=== PATIENT | female | born 1980 | race Caucasian/White ===

== ENCOUNTER 2016-08-18 17:33 | Emergency (ER) | payer OTHER ==
[2016-08-18 17:39] VITALS: BP 113/69
--- NOTE | 2016-08-18 18:16 | UC ---
Throat Pain/Nasal Mikey HPI - HPI Summary HPI Summary: Woke up yesterday with head and chest congestion, ST, cough, lots of sinus pressure. - History of Current Complaint Chief Complaint: UCRespiratory Stated Complaint: CONGESTION,SINUS AND HEAD PAIN Time Seen by Provider: 08/18/16 17:49 Hx Obtained From: Patient Hx Last Menstrual Period: 08/17/16 ?: No Onset/Duration: Gradual Onset, Lasting Hours Severity: Moderate Cough: Nonproductive Associated Signs & Symptoms: Positive: Wheezing, Sinus Discomfort, Nasal Discharge - Allergies/Home Medications Allergies/Adverse Reactions: Allergies Allergy/AdvReac Type Severity Reaction Status Date / Time Hydrocodone [From Vicodin] AdvReac Nausea And Verified 08/18/16 17:39 Vomiting PMH/Surg Hx/FS Hx/Imm Hx Previously Healthy: Yes - Surgical History Surgical History: Yes Surgery Procedure, Year, and Place: 3 c-sections. tubal ligation - Family History Known Family History: Positive: Cardiac Disease - Social History Occupation: Employed Part-time - childcare Lives: With Family Alcohol Use: None Substance Use Type: None Smoking Status (MU): Current Every Day Smoker Type: Cigarettes Amount Used/How Often: 10-12 cig a day Length of Time of Smoking/Using Tobacco: 14 years Have You Smoked in the Last Year: Yes Household Exposure Type: Cigarettes Review of Systems Constitutional: Negative Skin: Negative Eyes: Negative ENT: Sore Throat, Nasal Discharge, Sinus Congestion, Sinus Pain/Tenderness Respiratory: Cough Cardiovascular: Negative Gastrointestinal: Negative Genitourinary: Negative Motor: Negative Neurovascular: Negative Musculoskeletal: Negative Neurological: Negative Psychological: Negative All Other Systems Reviewed And Are Negative: Yes Physical Exam Triage Information Reviewed: Yes Appearance: Well-Appearing, Obese Vital Signs: Initial Vital Signs Temp 98.6 F 08/18/16 17:37 Pulse 117 08/18/16 17:37 Resp 20 08/18/16 17:37 BP 113/69 08/18/16 17:37 Pulse Ox 97 08/18/16 17:37 Vital Signs Reviewed: Yes Eye Exam: Normal Eyes: Positive: Conjunctiva Clear ENT: Positive: Hearing grossly normal, Nasal congestion, Nasal drainage, TMs normal. Negative: Tonsillar swelling, Tonsillar exudate Dental Exam: Normal Neck exam: Normal Neck: Positive: Supple, Nontender, No Lymphadenopathy Respiratory Exam: Normal Respiratory: Positive: Chest non-tender, Lungs clear, Normal breath sounds, No respiratory distress, No accessory muscle use Cardiovascular: Positive: No Murmur, Tachycardia Musculoskeletal Exam: Normal Neurological Exam: Normal Neurological: Positive: Alert Psychological Exam: Normal Skin Exam: Normal Throat Pain/Nasal Course/Dx - Differential Dx/Diagnosis Provider Diagnoses: URI, likely viral Discharge - Discharge Plan Condition: Stable Disposition: HOME Prescriptions: Albuterol HFA INHALER* [Ventolin HFA Inhaler*] 1 - 2 puff INH Q4H PRN #1 mdi PRN Reason: wheeze, cough Guaifenesin-Codeine [Guaiatussin AC] 5 - 10 ml PO Q6H #240 ml MDD 40mL Pseudoephedrine-Guaifenesin [Mucinex D 60-600 mg] 1 tab PO BID #20 tab Patient Education Materials: Upper Respiratory Infection (ED), Wheezing (ED) Referrals: Marcin Kan [Primary Care Provider] - Additional Instructions: We used to think antibiotics were necessary to treat bronchitis, but studies have shown that respiratory viruses cause the disease in the vast majority of cases. Like head colds, most cases of bronchitis get better without antibiotics. We may prescribe antibiotics if we believe bacteria are damaging your airways, or if there's high risk the bronchitis will worsen into pneumonia (such as for individuals with emphysema or other lung disease). Increase your fluid intake. A cool mist humidifier may make your lungs more comfortable. An expectorant (cough medicine that loosens phlegm) can help. If you smoke, STOP!!! Recovery from bronchitis can be somewhat slow, but you should not have any significant worsening or new fevers. As long as you can breathe easily and you continue to have steady improvement, it is not important how many days it takes you to get better. Call or return if you develop increasing fever, shortness of breath, chest pain , bloody sputum, or otherwise worsen. If you have not improved at all after several days, contact your primary care physician or return here. INHALED BRONCHODILATORS: You have received a prescription for an inhaled bronchodilator -- a medication which stimulates the airways in the lung to dilate. This improves the flow of air in asthma, bronchitis, and emphysema. These medicines have some similarity to adrenaline, and can cause similar side effects: shakiness, racing heart, and a sense of nervousness. These side effects can be reduced with the use of a spacer and usually decrease with time. Use 1-2 puffs up to every 4 hours as needed for wheezing or tightness in your chest. It may be helpful to use preventatively, such as before bedtime or before going outside into cold air. IF YOU FIND THAT YOU ARE CONSISTENTLY NEEDING THE INHALER MORE THAN 6 TIMES PER DAY, PLEASE CALL OR RETURN FOR FURTHER EVALUATION.
== END 2016-08-18 18:29 | disposition home or self-care (01) ==
LOC: UCEAST 17:33
DX: J06.9 Acute upper respiratory infection, unspecified (principal); Z72.0 Tobacco use
CPT/HCPCS: 99212; G0463

== ENCOUNTER 2016-09-16 13:06 | Emergency (ER) | payer OTHER ==
[2016-09-16 13:23] VITALS: BP 128/77
--- NOTE | 2016-09-16 13:52 | UC ---
Dizzy HPI HPI Summary: 2 days of "dizziness" - History Of Current Complaint Hx Obtained From: Patient Hx Last Menstrual Period: now ?: No Onset/Duration: Sudden Onset, Lasting Days - 2, Still Present Timing: Constant - with head movements Severity Initially: Mild Severity Currently: Mild Character: Head Spinning Aggravating Factor(s): Change In Head Position Alleviating Factor(s): Nothing Associated Signs And Symptoms: Positive: Nausea - with vertigo <Ofelia Otto - Last Filed: 09/16/16 14:45> <Poornima Adames - Last Filed: 09/17/16 10:45> - History Of Current Complaint Chief Complaint: UCDizziness Stated Complaint: DIZZY AND LIGHTHEADED Time Seen by Provider: 09/16/16 13:49 - Allergies/Home Medications Allergies/Adverse Reactions: Allergies Allergy/AdvReac Type Severity Reaction Status Date / Time Hydrocodone [From Vicodin] AdvReac Nausea And Verified 09/16/16 13:23 Vomiting PMH/Surg Hx/FS Hx/Imm Hx Previously Healthy: Yes - Surgical History Surgical History: Yes Surgery Procedure, Year, and Place: 3 c-sections. tubal ligation - Family History Known Family History: Positive: Cardiac Disease - Social History Occupation: Employed Full-time Lives: With Family Alcohol Use: None Substance Use Type: None Smoking Status (MU): Current Every Day Smoker Type: Cigarettes Amount Used/How Often: 10-12 cig a day Length of Time of Smoking/Using Tobacco: 14 years Have You Smoked in the Last Year: Yes Household Exposure Type: Cigarettes <Ofelia Otto - Last Filed: 09/16/16 14:45> Review of Systems Constitutional: Negative Skin: Negative Eyes: Negative ENT: Ear Ache - Congestion Respiratory: Negative Cardiovascular: Negative Gastrointestinal: Negative Genitourinary: Negative Motor: Negative Neurovascular: Negative Musculoskeletal: Negative Neurological: Negative, Other - sensation of movement with head movement Psychological: Negative All Other Systems Reviewed And Are Negative: Yes <Ofelia Otto - Last Filed: 09/16/16 14:45> Physical Exam Triage Information Reviewed: Yes Appearance: Well-Appearing, No Pain Distress, Well-Nourished Vital Signs: Initial Vital Signs Temp 98.0 F 09/16/16 13:19 Pulse 93 09/16/16 13:19 Resp 18 09/16/16 13:19 BP 128/77 09/16/16 13:19 Pulse Ox 99 09/16/16 13:19 Vital Signs Reviewed: Yes Eye Exam: Normal Eyes: Positive: Conjunctiva Clear, Other: - perrla,eomi, fundascopic exam with in normal limits ENT Exam: Normal ENT: Positive: Normal ENT inspection, Hearing grossly normal, Pharynx normal, TMs normal. Negative: Nasal congestion, Nasal drainage, Tonsillar swelling, Tonsillar exudate, Trismus, Muffled/hoarse voice Dental Exam: Normal Neck exam: Normal Neck: Positive: Supple, Nontender, No Lymphadenopathy Respiratory Exam: Normal Respiratory: Positive: Chest non-tender, Lungs clear, Normal breath sounds, No respiratory distress, No accessory muscle use Cardiovascular Exam: Normal Cardiovascular: Positive: RRR, No Murmur, Pulses Normal, Brisk Capillary Refill Musculoskeletal Exam: Normal Musculoskeletal: Positive: Strength Intact, ROM Intact, No Edema Neurological Exam: Normal Neurological: Positive: Alert, Muscle Tone Normal Psychological Exam: Normal Skin Exam: Normal <Ofelia Otto - Last Filed: 09/16/16 14:45> Vital Signs: Initial Vital Signs Temp 98.0 F 09/16/16 13:19 Pulse 93 09/16/16 13:19 Resp 18 09/16/16 13:19 BP 128/77 09/16/16 13:19 Pulse Ox 99 09/16/16 13:19 <Poornima Adames - Last Filed: 09/17/16 10:45> Dizzy Course/Dx - Course Course Of Treatment: meclizine, flonase, follow with pcp prn - Differential Dx/Diagnosis Differential Diagnosis/HQI/PQRI: Anxiety, Benign Paroxysmal Positional Vertigo, Vasovagal Reaction Provider Diagnoses: BPPV <Ofelia Otto - Last Filed: 09/16/16 14:45> Discharge <Ofelia Otto - Last Filed: 09/16/16 14:45> <Poornima Adames - Last Filed: 09/17/16 10:45> - Discharge Plan Condition: Stable Disposition: HOME Prescriptions: Fluticasone NASAL SPRAY 50MCG* [Flonase NASAL SPRAY 50MCG*] 2 spray BOTH NARES DAILY #1 btl Meclizine HCl [Meclizine 25] 25 mg PO TID PRN #21 tab PRN Reason: Vertigo Patient Education Materials: Vertigo (ED), Benign Paroxysmal Positional Vertigo (ED), Serous Otitis Media (ED) Referrals: Althea MONTGOMERY,Marcin Noe [Primary Care Provider] - If Needed Attestation Statement User Type: Provider - I was available for consult. This patient was seen by the [facility]. The patient was not presented to, seen by, or examined by me. -Elmer <Poornima Adames - Last Filed: 09/17/16 10:45>
== END 2016-09-16 14:25 | disposition home or self-care (01) ==
LOC: UCEAST 13:06
DX: Z72.0 Tobacco use (principal); H81.10 Benign paroxysmal vertigo, unspecified ear
CPT/HCPCS: 81003; 84702; 99212; G0463

== ENCOUNTER 2018-12-24 15:13 | Emergency (ER) | payer OTHER ==
[2018-12-24 16:11] VITALS: BP 125/88
--- NOTE | 2018-12-24 16:33 | UC ---
Dental HPI - HPI Summary HPI Summary: 38 year old female with PMH + for poor dentation presents with toothache. Patient has ah problems with this tooth for several months, had cavity with filling, filling fell out, now with increased pain to area. Has dental appointment 01/07. however noted increased swelling, pain over past several days. no fever, chills. + pain with chewing. - History of Current Complaint Chief Complaint: UCDentalProblem Stated Complaint: TOOTH INFECTION Time Seen by Provider: 12/24/18 16:25 Hx Obtained From: Patient Hx Last Menstrual Period: now ?: No Onset/Duration: Sudden Onset, Lasting Days Severity: Mild Pain Intensity: 2 Pain Scale Used: 0-10 Numeric Aggravating Factor(s): Chewing - Allergies/Home Medications Allergies/Adverse Reactions: Allergies Allergy/AdvReac Type Severity Reaction Status Date / Time hydrocodone Allergy nausea and Verified 12/24/18 16:12 vomitting PMH/Surg Hx/FS Hx/Imm Hx Previously Healthy: Yes - Surgical History Surgical History: Yes Surgery Procedure, Year, and Place: 3 c-sections. tubal ligation - Family History Known Family History: Positive: Cardiac Disease - Social History Alcohol Use: Rare Substance Use Type: None Smoking Status (MU): Current Every Day Smoker Type: Cigarettes Amount Used/How Often: 10-12 cig a day Length of Time of Smoking/Using Tobacco: 14 years Have You Smoked in the Last Year: Yes Household Exposure Type: Cigarettes Review of Systems All Other Systems Reviewed And Are Negative: Yes Constitutional: Negative: Fever, Chills, Fatigue Skin: Negative: Rash ENT: Positive: Dental Pain, Other - swelling on left cheek Respiratory: Negative: Shortness Of Breath, Cough Neurological: Positive: Negative Psychological: Positive: Negative Is Patient Immunocompromised?: No Physical Exam Triage Information Reviewed: Yes Appearance: Well-Appearing, No Pain Distress, Well-Nourished Vital Signs: Initial Vital Signs Temp 97.8 F 12/24/18 16:08 Pulse 81 12/24/18 16:08 Resp 18 12/24/18 16:08 BP 125/88 12/24/18 16:08 Pulse Ox 97 12/24/18 16:08 Vital Signs Reviewed: Yes Eyes: Positive: Conjunctiva Clear ENT: Positive: Pharynx normal, Uvula midline. Negative: Tonsillar swelling, Tonsillar exudate Dental: Positive: Other: - multiple molars removed, left lower molar noted with filling, + ttp around gingiva with mild erytema noted, no fluctuance, no drainage seen. + decay noted over tooth. Neck: Positive: Supple, Nontender, No Lymphadenopathy. Negative: Nuchal Rigidity, Enlarged Nodes @ Psychological Exam: Normal Skin Exam: Normal Dental Complaint Course/Dx - Course Course Of Treatment: Toothache with possible infection: - Follow up with dentist on 01/07 - motrin/ tylenol as needed for pain - Go to ER with increased pain, difficulty swallowing, increased swelling, vomiting, or fever > 102 - Antibiotics as directed - Differential Dx/Diagnosis Differential Diagnosis/Dx: Peridontic Disease, Peritonsillar Abcess Provider Diagnosis: Toothache Discharge ED - Sign-Out/Discharge Documenting (check all that apply): Patient Departure All imaging exams completed and their final reports reviewed: No Studies - Discharge Plan Condition: Good Disposition: HOME Prescriptions: Penicillin VK 500 MG TAB(NF) [Penicillin VK 500 mg Tab] 500 mg PO TID #36 tab Patient Education Materials: Toothache (ED) Referrals: Marcin Oh PA [Primary Care Provider] - Additional Instructions: - Follow up with dentist on 01/07 - motrin/ tylenol as needed for pain - Go to ER with increased pain, difficulty swallowing, increased swelling, vomiting, or fever > 102 - Antibiotics as directed - Billing Disposition and Condition Condition: GOOD Disposition: Home - Attestation Statements Provider Attestation: Per institutional requirements, I have reviewed the chart, however, I was not consulted specifically or made aware of this patient by the midlevel provider. I did not personally evaluate, interact with , or disposition this patient.
== END 2018-12-24 16:51 | disposition home or self-care (01) ==
LOC: UCEAST 15:13
DX: K08.89 Other specified disorders of teeth and supporting structures (principal); Z88.5 Allergy status to narcotic agent; F17.210 Nicotine dependence, cigarettes, uncomplicated
CPT/HCPCS: 99212; G0463